=== PATIENT | male | born 1995 | race Caucasian/White ===

== ENCOUNTER 2025-04-22 16:09 | Emergency (ER) | payer OTHER ==
[~2025-04-22] VITALS: Ht 172.7 cm; Wt 90.2 kg
[2025-04-22 19:41] VITALS: BP 173/91; TEMP 97.5; O2SAT 100
[2025-04-22] MEDS: LIDOCAINE VISCOUS 2% SOLN 15 ML UDC PO ONE (21:09)
== END 2025-04-22 22:42 | disposition home or self-care (01) ==
LOC: M ED 16:09
DX: J02.9 Acute pharyngitis, unspecified (principal); Z53.9 Procedure and treatment not carried out, unspecified reason

== ENCOUNTER 2025-04-24 09:13 | Emergency (ER) | payer OTHER ==
[~2025-04-24] VITALS: Ht 172.7 cm; Wt 90.0 kg
[2025-04-24 14:53] LABS: BASO # 0.0 10^3/uL (0.0-0.2); BASO % 0.7 % (0.0-1.0); EOS # 0.0 10^3/uL (0.0-0.5); EOS % 0.7 % (0.0-3.0); LYMPH # 1.7 10^3/uL (1.5-5.0); LYMPH % 27.8 % (24.0-44.0); MONO # 0.5 10^3/uL (0.0-0.8); MONO % 7.7 % (2.0-8.0); NEUTROPHILS # 3.9 10^3/uL (1.5-8.5); NEUTROPHILS % 62.9 % (36.0-66.0); PLATELET COUNT, AUTOMATED 238 10^3/uL (150-450)
[2025-04-24 15:05] VITALS: BP 126/90; TEMP 96.5; O2SAT 99
[2025-04-24 15:22] LABS: CALCIUM LEVEL 9.5 MG/DL (8.5-10.1); CARBON DIOXIDE LEVEL 26 MMOL/L (20-31); CHLORIDE LEVEL 102 MMOL/L (98-107); CREATININE FOR GFR 0.90 MG/DL (0.70-1.30); GLOMERULAR FILTRATION RATE > 90.0 (>60); POTASSIUM SERUM 5.8 MMOL/L (3.5-5.1); SODIUM LEVEL 138 MMOL/L (136-145)
[2025-04-24] MEDS ORDERED: PRED20TA PO (15:23)
== END 2025-04-24 15:45 | disposition home or self-care (01) ==
LOC: M ED 09:13
DX: T17.228A Food in pharynx causing other injury, initial encounter (principal); Z79.52 Long term (current) use of systemic steroids